=== PATIENT | female | born 2000 | race African-American/Black ===

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

== ENCOUNTER 2021-03-02 03:51 | Emergency (ER) | payer SELFPAY ==
--- NOTE | 2021-03-02 03:58 | EDM.PDOC ---
ED HPI GENERAL MEDICAL PROBLEM - General Stated Complaint: HEAD INJURY Time Seen by Provider: 03/02/21 03:55 - History of Present Illness INITIAL COMMENTS - FREE TEXT/NARRATIVE: History of present illness: [] The patient is here with a friend. She claims she she was playing a game and got stuck in the eye by an elbow. She has severe pain when she is touched under the left orbit. She has difficulty opening her left eye. She has a laceration on her forehead. She denies any neck pain. She denies any loss of consciousness. Review of systems: As per history of present illness and below otherwise all systems reviewed and negative. Past medical history: As per history of present illness and as reviewed below otherwise noncontributory. Surgical history: As per history of present illness and as reviewed below otherwise noncontributory. Social history: No reported history of drug or alcohol abuse. Family history: As per history of present illness and as reviewed below otherwise noncontributory. Physical exam: Constitutional - well developed, well-nourished and in no acute distress HEENT -neck is supple. Not tender. No step-off. Cleared by Nexus criteria. Normocephalic, there is hematoma under the left eyelid. The left eyelid is swollen. It has to be opened by manual traction. She is able to see the number of fingers held before it. She has an apparent full extraocular motion. There is hematoma in the inferior orbital rim and tenderness in the infraorbital soft tissues of the left side of the face.- external nose and mouth normal - no mass in neck and no JVD - mucosae moist EYES - full EOM, PERRL, no icterus - no evidence of inflammation, injection, or drainage Respiratory - no respiratory distress, equal bilateral expansion, lungs clear to auscultation and no abnormal lung sounds Cardiovascular - Regular Rhythm with S1 and S2 appreciated and no murmur, gallop or rub. GI - abdomen soft without distension or organomegaly - normal bowel sounds - no guard or rebound Musculoskeletal no gross deformity of long bones or joints - no tenderness, swelling or edema Neurologic - Alert and oriented times four - CN II-XII grossly intact - motor sensory and coordination symmetrically normal Psychiatric - appropriate mood and affect with normal thought content Hematologic - No petechiae or purpura - mucosa appropriate color and sclera not pale - normal nail bed color and refill Integument -3 cm laceration on the left forehead which is crescent-shaped and full-thickness. No rash or evidence of trauma - normal turgor Diagnostics: [] Therapeutics: [] Impression: [] Plan: [] Definitive disposition and diagnosis as appropriate pending reevaluation and review of above. L eyebrow Pain Score (Numeric/FACES): 3 - Related Data Allergies Allergy/AdvReac Type Severity Reaction Status Date / Time latex Allergy Itching Verified 03/02/21 04:00 Home Meds: Home Meds . 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: Musculoskeletal History: Reports: None Neurological History: Reports: None Psychiatric History: Reports: None Endocrine/Metabolic History: Reports: None Hematologic History: Reports: None Immunologic History: Reports: None Oncologic (Cancer) History: Reports: None Dermatologic History: Reports: None - Infectious Disease History Infectious Disease History: Reports: None - Past Surgical History HEENT Surgical History: Reports: None Cardiovascular Surgical History: Reports: None Respiratory Surgical History: Reports: None GI Surgical History: Reports: None Female Surgical History: Reports: Section Endocrine Surgical History: Reports: None Neurological Surgical History: Reports: None Musculoskeletal Surgical History: Reports: None Oncologic Surgical History: Reports: None Dermatological Surgical History: Reports: None Social & Family History - Family History Family Medical History: No Pertinent Family History - Caffeine Use Caffeine Use: Reports: Soda ED ROS GENERAL - Review of Systems Review Of Systems: Comprehensive ROS is negative, except as noted in HPI. ED EXAM, GENERAL - Physical Exam Exam: See Below Free Text/Narrative:: The physical exam is in the HPI ED GENERAL MEDICAL PROCEDURES - Laceration/Wound Repair Left Forehead Lac/wound length in cm: 3 Appearance: Subcutaneous Distal NVT: Neuro & Vascular Intact Anesthetic Type: Local Local Anesthesia - Lidocaine (Xylocaine): 1% with EPI Local Anesthetic Volume: Other (10 cm) Skin Prep: Chlorhexidine (Hibiciens), Saline Saline irrigation (cc's): 200 Exploration/Debridement/Repair: Wound Explored Closed with: Sutures Suture Size: 5-0 # of Sutures: 8 Suture Type: Nylon, Simple Suture Size: 5-0 # of Sutures: 2 Repaired with: Chromic Tetanus Status Addressed: Yes Progress/Comments: The patient was anesthetized with let first because she was unwilling to have a needle put into the wound. After 20 minutes she was anesthetized with an injection of 8 mL of 1% Xylocaine with epinephrine. After a short delay to allow the medicine to take effect she had complete anesthesia of the area. He was irrigated out with saline and the skin area prepped with chlorhexidine. 2 subcutaneous 5-0 sutures were placed to approximate skin edges and then 8 simple interrupted 5-0 Ethilon sutures were placed percutaneously. Patient tolerated the procedure well and the result was good Course - Vital Signs Last Recorded V/S: Last Vital Signs Temp 36.3 C 03/02/21 04:00 Pulse 74 03/02/21 04:00 Resp 16 03/02/21 04:00 BP 130/85 03/02/21 04:00 Pulse Ox 98 03/02/21 04:00 - Orders/Labs/Meds Orders: Active Orders 24 hr Category Date Time Status Max Facial Sinus wo Cont [CT] Stat Exams 03/02/21 04:05 Taken Labs: Laboratory Tests 03/02/21 Range/Units 04:05 Urine HCG, Qual NEGATIVE (NEGATIVE) Meds: Medications Discontinued Medications Generic Name Dose Route Start Last Admin Trade Name Martha PRN Reason Stop Dose Admin Lidocaine/Epinephrine 20 ml 03/02/21 04:00 03/02/21 04:54 Lidocaine 1% With Epinephrine 1:100,000 20 Ml Mdv INJECT 03/02/21 04:01 20 ml ONETIME ONE Administration Lidocaine/Tetracaine 1 ml 03/02/21 04:46 03/02/21 04:53 Lidocaine/Epinephrine/Tetracaine Soln 1 Ml TOP 03/02/21 04:47 1 ml ONETIME ONE Administration Lidocaine/Tetracaine 1 ml 03/02/21 04:54 03/02/21 04:55 Lidocaine/Epinephrine/Tetracaine Soln 1 Ml TOP 03/02/21 04:55 1 ml ONETIME ONE Administration Departure - Departure Time of Disposition: 05:51 Disposition: Home, Self-Care 01 Condition: Good Clinical Impression: Laceration of forehead, Periorbital contusion of left eye - Discharge Information Instructions: Laceration Care, Adult, [id number] Referrals: PCP,None [Primary Care Provider] - Additional Instructions: Put ice or frozen peas in the bag on the area so that the swelling will go down. If there is any problem with vision or pain in the eye itself see ophthalmology for follow-up. Sutures out in 7 to 10 days. [facility] - Primary Care [address] [place] [address] [facility] [address] [place] [address] The following information is given to patients seen in the emergency department who are being discharged to home. This information is to outline your options for follow-up care. We provide all patients seen in our emergency department with a follow-up referral. The need for follow-up, as well as the timing and circumstances, are variable depending upon the specifics of your emergency department visit. If you don't have a primary care physician on staff, we will provide you with a referral. We always advise you to contact your personal physician following an emergency department visit to inform them of the circumstance of the visit and for follow-up with them and/or the need for any referrals to a consulting specialist. The emergency department will also refer you to a specialist when appropriate. This referral assures that you have the opportunity for follow-up care with a specialist. All of these measure are taken in an effort to provide you with optimal care, which includes your follow-up. Under all circumstances we always encourage you to contact your private physician who remains a resource for coordinating your care. When calling for follow-up care, please make the office aware that this follow-up is from your r ecent emergency room visit. If for any reason you are refused follow-up, please contact the [facility] Emergency Department at and asked to speak to the emergency department charge nurse. Sepsis Event Note (ED) - Focused Exam Vital Signs: Vital Signs Temp Pulse Resp BP Pulse Ox 03/02/21 04:00 36.3 C 74 16 130/85 98 - My Orders Last 24 Hours: My Active Orders 03/02/21 04:05 Max Facial Sinus wo Cont [CT] Stat - Assessment/Plan Last 24 Hours: My Active Orders 03/02/21 04:05 Max Facial Sinus wo Cont [CT] Stat
[2021-03-02] MEDS ORDERED: Lidocaine 1% with EPINEPHrine 1:100,000 20 ML MDV INJECT ONE (04:00)
[2021-03-02] MEDS ORDERED: Lidocaine/EPINEPHrine/Tetracaine Soln 1 ML TOP ONE ×2 (04:46→04:54)
--- NOTE | 2021-03-02 05:51 | CT ---
INDICATION: Facial injury TECHNIQUE: CT maxillofacial without contrast. COMPARISON: None FINDINGS: Facial bones: No fractures or bone lesions. Specifically the nasal bones, temporomandibular joints, maxilla and mandible appear intact. Orbits and globes: Unremarkable. Globes are intact. No sign of intraorbital hemorrhage or emphysema. Sinuses: No acute or significant findings. Soft tissues: Fat stranding in the left periorbital tissues with a left supraorbital subcutaneous skin defect consistent with a laceration. IMPRESSION: Left periorbital subcutaneous hematoma and laceration without evidence of facial fracture. Please note that all CT scans at this facility use dose modulation, iterative reconstruction, and/or weight-based dosing when appropriate to reduce radiation dose to as low as reasonably achievable. Dictated by John Calderon MD @ Mar 02 2021 5:44AM Signed by Dr. John Calderon @ Mar 02 2021 5:48AM
[2021-03-02 06:06] VITALS: BP 123/65; PULSE 75
== END 2021-03-02 06:06 | disposition home or self-care (01) ==
LOC: MW.ED 03:51
DX: S01.81XA Laceration without foreign body of other part of head, initial encounter (principal); Z91.040 Latex allergy status; W50.0XXA Accidental hit or strike by another person, initial encounter
CPT/HCPCS: 12013; 12052; 70486; 70486-26; 81025; 99282; 99283-25